=== PATIENT | female | born 1965 | race Caucasian/White ===

== ENCOUNTER 2024-05-20 13:15 | Emergency (ER) | payer OTHER ==
[~2024-05-20] VITALS: Ht 170.2 cm; Wt 87.1 kg
[2024-05-20 14:15] VITALS: O2SAT 100
[2024-05-20] MEDS ORDERED: methylPREDNISolone SOD SUCC 125 MG/2ML VIAL ONE (15:20)
[2024-05-20] MEDS ORDERED: EPINEPHRINE (1:1000) 1 MG/ML AMPUL ONE (15:20)
[2024-05-20 15:34] LABS: EOSINOPHILS # (AUTO) 0.1 K/uL (0.0-0.7); EOSINOPHILS % (AUTO) 1.6 % (0.0-6.0); HEMATOCRIT 34 % (33-45); HEMOGLOBIN 10.9 g/dL (11.5-14.8); LYMPHOCYTES # (AUTO) 0.8 K/uL (0.8-4.8); LYMPHOCYTES % (AUTO) 20.5 % (20.0-44.0); MEAN CORPUSCULAR HEMOGLOBIN 29 PG (26.0-33.0); MEAN CORPUSCULAR HGB CONC 33 g/dl (31.0-36.0); MEAN CORPUSCULAR VOLUME 88 fL (82-100); MONOCYTES # (AUTO) 0.4 K/uL (0.1-1.30); MONOCYTES % (AUTO) 9.2 % (2.0-12.0); NEUTROPHILS # (AUTO) 2.6 K/uL (1.8-8.9); NEUTROPHILS % (AUTO) 67.7 % (43.0-81.0); PLATELET COUNT (AUTO) 269 K/uL (150-450); RED BLOOD CELL COUNT(AUTO) 3.83 MIL/uL (4.0-5.2); RED CELL DISTRIBUTION WIDTH 14.3 % (11.5-15.0); WHITE BLOOD COUNT (AUTO) 3.9 K/uL (4.3-11.0)
[2024-05-20] MEDS: IV NS 0.9% 1,000 ML IV ONE (15:46)
[2024-05-20] MEDS: methylPREDNISolone SOD SUCC 125 MG/2ML VIAL IV ONE (15:46)
[2024-05-20] MEDS: EPINEPHRINE (1:1000) 1 MG/ML AMPUL SUBCUT ONE (15:47)
[2024-05-20 15:59] LABS: CALCIUM, SERUM 9.2 mg/dL (8.5-10.1)
[2024-05-20 16:00] VITALS: O2SAT 100
[2024-05-20] MEDS ORDERED: IPRATROPIUM NEB FS 0.5 MG/2.5 ML AMPUL.NEB ONE (16:00)
[2024-05-20] MEDS: IPRATROPIUM NEB FS 0.5 MG/2.5 ML AMPUL.NEB NEB ONE (16:00)
[2024-05-20] MEDS: ALBUTEROL FS 2.5 MG/3 ML VIAL.NEB NEB ONE (16:00)
[2024-05-20] MEDS ORDERED: ALBUTEROL FS 2.5 MG/3 ML VIAL.NEB ONE (16:01)
[2024-05-20 16:15] VITALS: O2SAT 100
[2024-05-20 17:00] VITALS: TEMP 98
[2024-05-20] MEDS ORDERED: AZIT250T PO (17:18)
[2024-05-20] MEDS ORDERED: PRED50TA PO (17:18)
[2024-05-20] MEDS ORDERED: ALBU8.5H8 INH (17:18)
[2024-05-20 17:21] VITALS: BP 122/74; O2SAT 99
== END 2024-05-20 17:34 | disposition home or self-care (01) ==
LOC: ER 13:19
DX: J40 Bronchitis, not specified as acute or chronic (principal); Z20.822 Contact with and (suspected) exposure to COVID-19; Z88.8 Allergy status to other drugs, medicaments and biological substances
CPT/HCPCS: 99285; 96374; 71045; 96361; 87426; 93005; 87804 ×2; 85025; 80048; 36415; 94640; 94799; 96372; J0171; J2919; J7030